=== PATIENT | female | born 1970 | race Caucasian/White ===

== ENCOUNTER → 2019-03-10 | Outpatient (REF) | payer BC ==
[2019-03-10 16:21] LABS: BLOOD UREA NITROGEN 5 MG/DL (7-18); CALCIUM LEVEL 10.7 MG/DL (8.5-10.1); CARBON DIOXIDE LEVEL 29 MEQ/L (21-32); CHLORIDE LEVEL 98 MEQ/L (98-107); CREATININE FOR GFR 0.73 MG/DL (0.55-1.30); GLOMERULAR FILTRATION RATE > 60.0 (>51); GLUCOSE, FASTING 94 MG/DL (70-100); SODIUM LEVEL 134 MEQ/L (136-145)
[2019-03-10 16:29] LABS: OSMOLALITY SERUM 285 MOSM/KG (275-295)
== END ==
LOC: M SFHCPLAZ 15:27
PROVIDERS: ATTEND Nurse Practitioner Family
DX: E87.1 Hypo-osmolality and hyponatremia (principal)

== ENCOUNTER → 2019-03-10 | Outpatient (CLI) | payer BC ==
--- NOTE | 2019-03-19 14:07 | REP ---
BILATERAL SCREENING DIGITAL MAMMOGRAM WITH 3D TOMOSYNTHESIS: There are no palpable abnormalities or other breast complaints. The the patient states she had a clinical breast examination 01/2019. The the patient states she performs self-breast examinations six times per year. The Tyrer-Cuzick Score is: 20.1% . Comparison is of 08/29/2015. The breasts are extremely dense, which lowers the sensitivity of mammography. There is no dominant mass, micro calcific cluster or architectural distortion that would indicate malignancy. There are no additional findings on 3D tomosynthesiss. There is no change from the prior study. Impression: BIRADS/ACR category 1 mammogram. Negative. Recommendation: Routine annual screening mammography. Because of the increased breast density, annual adjunctive breast MRI in addition to screening mammography is recommended. For women with a Tyrer-Cuzick score greater than 20 , adjunctive annual breast MRI in addition to screening mammography is recommended. This mammogram was interpreted with the aid of a FDA approved computer-aided detection system. A. Negative mammogram reports should not delay biopsy if a dominant or clinically suspicious mass is present. B. Not all breast cancers are identified by mammography or tomosynthesis. C. Adenosis and dense breasts may obscure an underlying neoplasm. Patient letter M1 dense breasts. Electronically Signed by Michael Gilmore MD 03/19/2019 01:59 P
== END ==
LOC: M WHC 12:39
PROVIDERS: ATTEND Nurse Practitioner Family
DX: Z12.31 Encounter for screening mammogram for malignant neoplasm of breast (principal)

== ENCOUNTER → 2019-06-02 | Outpatient (CLI) | payer BC ==
--- NOTE | 2019-06-02 18:49 | REP ---
PET/CT: History: Right lower lobe solitary pulmonary nodule, right lower lobe . Comparisons: Comparison chest CT exam is from [facility] dated April 28, 2019. The somewhat spiculated nodule previously identified in the superior segment of the right lower lobe is again seen on today's chest CT. It appears slightly larger on today's study. TECHNIQUE: 46 minutes following the intravenous injection of a 8.60 mCi dose of F-18 FDG, three-dimensional PET scintigraphy is acquired from the skull base to the proximal thighs. Triplanar noncontrast CT scanning is acquired through the same anatomic range for attenuation correction, and image registration with scan parameters optimized to minimize radiation exposure to the patient. PET scintigraphy and CT datasets were fused and displayed on a workstation with multiplanar and projection display capability. PET/CT Findings: The somewhat spiculated nodule recently identified in the superior segment right lower lobe on the prior chest CT is again noted. It appears somewhat larger measuring 12 mm in greatest diameter on today's CT images. It is mildly hypermetabolic with maximum standard uptake value 4.39. No other abnormal hypermetabolic pulmonary parenchymal uptake is seen. There is visible precarinal lymph node but this is not hypermetabolic, SUV 1.9. No hypermetabolic cale uptake is seen in the mediastinum or in either hilus. In the abdomen and pelvis, there is normal FDG distribution to the liver spleen, urinary tract and gastrointestinal tract. No abnormal hypermetabolic uptake is seen in the abdomen or pelvis. There is a linear pattern of mildly hypermetabolic uptake in the left side of the upper two sacral segments parallel to the SI joint. There is faint sclerosis along this region and the findings are felt to be most compatible with developing sacral insufficiency fracture. Maximum standard uptake value is minimally increased at 3.0. No other focally abnormal skeletal hypermetabolic focus is seen. Scan is otherwise unremarkable. Impression: Hypermetabolic uptake is seen in the superior segment right lower lobe pulmonary nodule. Malignancy cannot be excluded. The lesion appears slightly larger on today's CT images. There is mildly hypermetabolic uptake in a somewhat linear vertically oriented pattern in the left upper lateral sacrum suggestive of sacral insufficiency fracture. MRI study of the sacrum may provide additional information. No other abnormal hypermetabolic uptake. Electronically Signed by Pineda Castillo MD 06/03/2019 09:09 A
== END ==
LOC: M PLARAD 11:24
PROVIDERS: ATTEND Nurse Practitioner Family
DX: R91.1 Solitary pulmonary nodule (principal)
CPT/HCPCS: 78815; A9552

== ENCOUNTER → 2019-06-11 | Outpatient (CLI) | payer BC ==
--- NOTE | 2019-06-12 06:08 | REP ---
Clinical: Follow-up pulmonary nodule. Technique: Axial noncontrast images from the thoracic inlet to the upper abdomen with coronal and sagittal re-formations. Comparison: Findings: Solitary spiculated nodule in the superior segment right lower lobe currently measures approximately 11.5 mm maximal diameter. Mediastinal lymph node in the precarinal space measures 12 mm. No further lesions or adenopathy appreciated. Chronic COPD/emphysematous disease noted. Tracheobronchial tree is patent. No effusion. No pneumothorax. Ascending thoracic aorta measures 3.9 cm diameter. No cardiomegaly or pericardial effusion. Impression: 1. Spiculated lesion in the superior segment right lower lobe measuring 11.5 mm maximal diameter with 12 mm precarinal lymph node. 2. Ascending thoracic aortic aneurysm 3.9 cm maximal diameter. 3. COPD/emphysematous disease. Electronically Signed by Yuri Jones MD 06/12/2019 05:58 A
== END ==
LOC: M RAD 12:22
PROVIDERS: ATTEND Nurse Practitioner Family
DX: R91.1 Solitary pulmonary nodule (principal)

== ENCOUNTER → 2019-08-10 | Outpatient (CLI) | payer BC, MEDICARE ==
--- NOTE | 2019-08-10 14:23 | REP ---
CT CHEST WITHOUT CONTRAST: HISTORY: Solitary pulmonary nodule. Comparison chest CT June 11, 2019. PET CT June 02, 2019. FINDINGS: A spiculated nodule is again noted in the superior segment right lower lobe. This measures 9.5 mm in greatest transverse dimension today, previously 11.5 mm. Its vertical span on sagittal multiplanar re-formation image is 6.0 mm today, previously 8.8 mm. There are emphysematous changes in the upper lobes bilaterally. No other significant pulmonary nodule is appreciated. There is a small pleural plaque in the right lower lobe more inferiorly. No infiltrate is seen. No pleural or pericardial effusion is seen. Normal adrenal glands are observed. There is an accessory splenule in the left upper quadrant. No adenopathy. IMPRESSION: There is a spiculated nodule in the superior segment right lower lobe which appears slightly smaller than on the prior study. Continued followup is advised. Electronically Signed by Pineda Castillo MD 08/10/2019 05:02 P
== END ==
LOC: M RAD 12:54
PROVIDERS: ATTEND Internal Medicine Pulmonary Disease
DX: R91.1 Solitary pulmonary nodule (principal)

== ENCOUNTER → 2019-11-16 | Outpatient (CLI) | payer MEDICARE ==
--- NOTE | 2019-11-16 12:30 | REP ---
CT of the chest without IV contrast for right lower lobe lung nodule: Comparisons are 08/10/2019 and 06/11/2019. The patient's known nodule in the superior segment of the right upper lobe with poorly defined margins today measures 10 mm transversely. This measured at 10 mm on 08/10/2019 measured 11 mm 06/11/2019. There are no other lung nodules or masses. There are no infiltrates or pleural effusions. There is extensive replacement of the lung parenchyma with bulla bilaterally in all lobes. This is unchanged. There is no mediastinal or axillary lymph node enlargement. In the absence of IV contrast the study is insensitive for hilar lymph node enlargement. The visualized upper abdominal contents are unremarkable. There is no adrenal mass. Impression: Right lower lobe lung nodule as described. Electronically Signed by Michael Gilmore MD 11/16/2019 12:23 P
== END ==
LOC: M RAD 10:29
PROVIDERS: ATTEND Internal Medicine Pulmonary Disease
DX: R91.1 Solitary pulmonary nodule (principal); J43.9 Emphysema, unspecified

== ENCOUNTER → 2020-07-01 | Outpatient (CLI) | payer MEDICARE ==
--- NOTE | 2020-07-06 07:56 | REP ---
CT CHEST WITHOUT CONTRAST HISTORY: Solitary pulmonary nodule. COMPARISON: Made with prior chest CTs, the most recent of which is from 11/16/2019 and the most remote of which is dated 11/04/2015. CT FINDINGS: Hyperinflation is apparent on the digital director of agronomy radiograph as before. There are moderate emphysematous changes in the upper lobes. The previously identified spiculated nodule in the superior segment of the right lower lobe is again seen. This measures 7 mm anterior to posterior by 8 mm right to left x 6 mm cranial to caudal. It retains its rather spiculated morphologic appearance, but does not appear to have increased in size since the 11/16/2019 or the 06/11/2019 study. In deed, it measured 11.5 mm in right to left dimension on 06/11/2019. Remote prior study showed waxing and waning nodular opacities elsewhere in the lungs. There is a tiny stable 3-mm nodule in the superior segment of the left lower lobe on todays study Page 29 of 113 in Series 201. This is unchanged from 11/16/2019 and 06/11/2019. No new pulmonary nodule is appreciated on todays CT images. No mass or infiltrate is appreciated. No pleural or pericardial effusion is seen. No hilar or mediastinal mass or adenopathy is seen. The ascending aorta is mildly dilated measuring 4.0 cm in AP dimension at the right main pulmonary artery also unchanged. Normal adrenal glands are seen. The visualized upper abdominal structures are unremarkable. There is an accessory splenule. No bony destructive lesion is seen. IMPRESSION: Stable spiculated nodule superior segment right lower lobe, 8.4 mm in greatest dimension today. MTDD
== END ==
LOC: M RAD 08:10
PROVIDERS: ATTEND Internal Medicine Pulmonary Disease
DX: R91.1 Solitary pulmonary nodule (principal)

== ENCOUNTER → 2021-01-13 | Outpatient (REF) | payer MEDICARE ==
[2021-01-13 16:12] LABS: ALBUMIN 4.6 GM/DL (3.2-5.2); ALT/SGPT 24 U/L (12-78); BILIRUBIN,TOTAL 0.5 MG/DL (0.2-1.0); BLOOD UREA NITROGEN 7 MG/DL (7-18); CALCIUM LEVEL 10.7 MG/DL (8.5-10.1); CARBON DIOXIDE LEVEL 30 MEQ/L (21-32); CHLORIDE LEVEL 99 MEQ/L (98-107); CHOLESTEROL LEVEL 233 MG/DL (<200); CHOLESTEROL RISK RATIO 1.849 (<5); CREATININE FOR GFR 0.51 MG/DL (0.55-1.30); FREE T4 1.08 NG/DL (0.76-1.46); GLOMERULAR FILTRATION RATE > 60.0 (>51); GLUCOSE, FASTING 91 MG/DL (70-100); HDL CHOLESTEROL 126 MG/DL (>40); LDL CHOLESTEROL 88 MG/DL (<100); MAGNESIUM LEVEL 2.1 MG/DL (1.8-2.4); NON-HDL-C 107 MG/DL; POTASSIUM SERUM 4.3 MEQ/L (3.5-5.1); SODIUM LEVEL 134 MEQ/L (136-145); TOTAL PROTEIN 8.3 GM/DL (6.4-8.2); TRIGLYCERIDES LEVEL 95 MG/DL (<150)
[2021-01-13 16:15] LABS: TOTAL 25(OH) VITAMIN D 31.8 NG/ML (30.0-100.0)
== END ==
LOC: M SFHCPLAZ 13:56
PROVIDERS: ATTEND Nurse Practitioner Family
DX: E78.5 Hyperlipidemia, unspecified (principal); I10 Essential (primary) hypertension; E55.9 Vitamin D deficiency, unspecified

== ENCOUNTER → 2021-02-13 | Outpatient (CLI) | payer MEDICARE ==
--- NOTE | 2021-02-13 09:02 | REPVR ---
PROCEDURE INFORMATION: Exam: CT Chest Without Contrast; Diagnostic Exam date and time: 02/13/2021 8:30 AM Age: 50 years old Clinical indication: Condition or disease; Other: Solitary pulmonary nodule TECHNIQUE: Imaging protocol: Diagnostic computed tomography of the chest without contrast. 3D rendering (Not supervised by radiologist): MIP and/or 3D reconstructed images were created by the technologist. Radiation optimization: All CT scans at this facility use at least one of these dose optimization techniques: automated exposure control; mA and/or kV adjustment per patient size (includes targeted exams where dose is matched to clinical indication); or iterative reconstruction. COMPARISON: CT Chest without contrast 07/01/2020 8:25 AM FINDINGS: Lungs: Stable 10 mm nodule in the superior segment of the right upper lobe with poorly defined margins . There are no other lung nodules or masses. Hyperinflated lungs with emphysematous changes. Pleural spaces: Unremarkable. No pneumothorax. No pleural effusion. Heart: Unremarkable. No cardiomegaly. No pericardial effusion. Aorta: Ascending thoracic aorta is borderline enlarged measuring 37 x 14 mm. Lymph nodes: Unremarkable. No enlarged lymph nodes. Bones/joints: Old left lateral 7, 8, and 9th rib fractures with callus formation. No acute fracture. Soft tissues: Unremarkable. IMPRESSION: Stable 10 mm nodule in the superior segment of the right upper lobe with poorly defined margins . There are no other lung nodules or masses. Hyperinflated lungs with emphysematous changes. Follow-up as clinically indicated. Electronically signed by: Yeni Markham On 02/13/2021 09:02:03 AM
== END ==
LOC: M RAD 08:17
PROVIDERS: ATTEND Internal Medicine Pulmonary Disease
DX: R91.1 Solitary pulmonary nodule (principal); J43.9 Emphysema, unspecified

== ENCOUNTER → 2022-06-15 | Outpatient (CLI) | payer MEDICARE ==
[2022-06-15 15:44] LABS: BASO % 0.3 % (0.0-1.0); EOS # 0.1 10^3/uL (0.0-0.5); HEMATOCRIT 44.1 % (36.0-47.0); HEMOGLOBIN 15.2 g/dl (12.0-15.5); LYMPH # 1.3 10^3/uL (1.5-5.0); LYMPH % 18.3 % (24.0-44.0); MEAN CORPUSCULAR HEMOGLOBIN 32.8 pg (27.0-33.0); MEAN CORPUSCULAR HGB CONC 34.5 g/dl (32.0-36.5); MEAN CORPUSCULAR VOLUME 95.2 fl (80.0-96.0); MONO # 0.6 10^3/uL (0.0-0.8); MONO % 7.9 % (2.0-8.0); NEUTROPHILS # 5.1 10^3/uL (1.5-8.5); NEUTROPHILS % 72.2 % (36.0-66.0); PLATELET COUNT, AUTOMATED 237 10^3/uL (150-450); RED BLOOD COUNT 4.63 10^6/uL (4.00-5.40); WHITE BLOOD COUNT 7.1 10^3/uL (4.0-10.0)
[2022-06-15 16:31] LABS: ALBUMIN 4.6 GM/DL (3.2-5.2); ALT/SGPT 30 U/L (12-78); BILIRUBIN,TOTAL 0.4 MG/DL (0.2-1.0); BLOOD UREA NITROGEN 4 MG/DL (7-18); CALCIUM LEVEL 10.4 MG/DL (8.5-10.1); CARBON DIOXIDE LEVEL 29 MEQ/L (21-32); CHLORIDE LEVEL 102 MEQ/L (98-107); CHOLESTEROL LEVEL 256 MG/DL (<200); CHOLESTEROL RISK RATIO 1.954 (<5); CREATININE FOR GFR 0.58 MG/DL (0.55-1.30); GLOMERULAR FILTRATION RATE > 60.0 (>51); GLUCOSE, FASTING 112 MG/DL (70-100); HDL CHOLESTEROL 131 MG/DL (>40); LDL CHOLESTEROL 105 MG/DL (<100); MAGNESIUM LEVEL 2.3 MG/DL (1.8-2.4); NON-HDL-C 125 MG/DL; POTASSIUM SERUM 3.9 MEQ/L (3.5-5.1); SODIUM LEVEL 134 MEQ/L (136-145); TOTAL PROTEIN 8.2 GM/DL (6.4-8.2); TRIGLYCERIDES LEVEL 101 MG/DL (<150)
== END ==
LOC: M PLALAB 13:18
PROVIDERS: ATTEND Nurse Practitioner Family
DX: I10 Essential (primary) hypertension (principal); E78.5 Hyperlipidemia, unspecified; E55.9 Vitamin D deficiency, unspecified

== ENCOUNTER → 2023-12-05 | Outpatient (REF) | payer MEDICARE ==
[2023-12-05 14:27] LABS: BASO % 0.4 % (0.0-1.0); EOS # 0.1 10^3/uL (0.0-0.5); HEMATOCRIT 43.3 % (36.0-47.0); HEMOGLOBIN 14.7 g/dl (12.0-15.5); LYMPH # 1.4 10^3/uL (1.5-5.0); LYMPH % 27.5 % (24.0-44.0); MEAN CORPUSCULAR HEMOGLOBIN 32.2 pg (27.0-33.0); MEAN CORPUSCULAR HGB CONC 33.9 g/dl (32.0-36.5); MONO # 0.4 10^3/uL (0.0-0.8); MONO % 7.7 % (2.0-8.0); NEUTROPHILS # 3.2 10^3/uL (1.5-8.5); NEUTROPHILS % 63.2 % (36.0-66.0); PLATELET COUNT, AUTOMATED 184 10^3/uL (150-450); RED BLOOD COUNT 4.56 10^6/uL (4.00-5.40); WHITE BLOOD COUNT 5.1 10^3/uL (4.0-10.0)
[2023-12-05 14:56] LABS: TOTAL 25(OH) VITAMIN D 25.9 NG/ML (20.0-100.0)
[2023-12-05 14:58] LABS: FREE T4 1.08 NG/DL (0.89-1.76)
[2023-12-05 14:59] LABS: THYROID STIMULATING HORMONE 1.866 uIU/ML (0.55-4.78)
[2023-12-05 15:00] LABS: ALBUMIN 4.6 G/DL (3.2-5.2); ALKALINE PHOSPHATASE 97 U/L (46-116); ALT/SGPT 20 U/L (7.0-40); AST/SGOT 15 U/L (<34); BILIRUBIN,TOTAL 0.6 MG/DL (0.3-1.2); BLOOD UREA NITROGEN 9 MG/DL (9-23); CALCIUM LEVEL 10.3 MG/DL (8.5-10.1); CARBON DIOXIDE LEVEL 31 MMOL/L (20-31); CHLORIDE LEVEL 103 MMOL/L (98-107); CHOLESTEROL LEVEL 264 MG/DL (<200); CHOLESTEROL RISK RATIO 2.36 (<5); CREATININE FOR GFR 0.55 MG/DL (0.55-1.30); GLOMERULAR FILTRATION RATE > 60.0 (>51); GLUCOSE, FASTING 103 MG/DL (60-100); HDL CHOLESTEROL 111.8 MG/DL (>40); LDL CHOLESTEROL 134.6 MG/DL (<100); NON-HDL-C 152.2 MG/DL; POTASSIUM SERUM 3.8 MMOL/L (3.5-5.1); SODIUM LEVEL 139 MMOL/L (136-145); TOTAL PROTEIN 7.6 G/DL (5.7-8.2); TRIGLYCERIDES LEVEL 88 MG/DL (<150)
== END ==
LOC: M SFHCADAM 10:13
PROVIDERS: ATTEND Nurse Practitioner Family
DX: I10 Essential (primary) hypertension (principal); E78.5 Hyperlipidemia, unspecified; E55.9 Vitamin D deficiency, unspecified

== ENCOUNTER → 2023-12-05 | Outpatient (CLI) | payer MEDICARE ==
[2023-12-05 14:26] LABS: BASO % 0.2 % (0.0-1.0); EOS % 0.8 % (0.0-3.0); HEMATOCRIT 43.4 % (36.0-47.0); HEMOGLOBIN 14.9 g/dl (12.0-15.5); LYMPH # 1.3 10^3/uL (1.5-5.0); LYMPH % 26.5 % (24.0-44.0); MEAN CORPUSCULAR HEMOGLOBIN 32.7 pg (27.0-33.0); MEAN CORPUSCULAR HGB CONC 34.3 g/dl (32.0-36.5); MEAN CORPUSCULAR VOLUME 95.2 fl (80.0-96.0); MONO # 0.4 10^3/uL (0.0-0.8); MONO % 7.9 % (2.0-8.0); NEUTROPHILS # 3.3 10^3/uL (1.5-8.5); NEUTROPHILS % 64.2 % (36.0-66.0); PLATELET COUNT, AUTOMATED 183 10^3/uL (150-450); RED BLOOD COUNT 4.56 10^6/uL (4.00-5.40); WHITE BLOOD COUNT 5.1 10^3/uL (4.0-10.0)
[2023-12-05 14:54] LABS: ALBUMIN 4.3 G/DL (3.2-5.2); BILIRUBIN,DIRECT 0.2 MG/DL (<0.4); BILIRUBIN,TOTAL 0.5 MG/DL (0.3-1.2); TOTAL PROTEIN 7.3 G/DL (5.7-8.2)
[2023-12-05 14:58] LABS: IMMUNOGLOBULIN E 38.1 IU/ML (0-378)
== END ==
LOC: M LABDRWAD 10:54
PROVIDERS: ATTEND Internal Medicine Pulmonary Disease
DX: E88.01 Alpha-1-antitrypsin deficiency (principal); Z14.8 Genetic carrier of other disease

== ENCOUNTER → 2023-12-17 | Outpatient (CLI) | payer MEDICARE | LOC: M WHC 12:28 | PROVIDERS: ATTEND Nurse Practitioner Family | DX: Z13.820 Encounter for screening for osteoporosis (principal); M81.0 Age-related osteoporosis without current pathological fracture; Z12.31 Encounter for screening mammogram for malignant neoplasm of breast; R92.333 Mammographic heterogeneous density, bilateral breasts; Z80.3 Family history of malignant neoplasm of breast ==

== ENCOUNTER → 2024-01-30 | Outpatient (CLI) | payer MEDICARE | LOC: M PLAIMG 13:00 | PROVIDERS: ATTEND Internal Medicine Pulmonary Disease | DX: R91.8 Other nonspecific abnormal finding of lung field (principal); J47.9 Bronchiectasis, uncomplicated; J84.10 Pulmonary fibrosis, unspecified; I77.810 Thoracic aortic ectasia; J43.9 Emphysema, unspecified ==

== ENCOUNTER → 2024-04-01 | Outpatient (CLI) | payer MEDICARE ==
[~2024-04-01] MED LIST: ALLE180T33 PO; ATOR1TAB21 PO; FLUT1BLS8; MULT-90 PO; VENTAER; ZOLO100T PO
== END ==
LOC: M SOG 11:06
PROVIDERS: ATTEND Orthopaedic Surgery
DX: S52.021A Displaced fracture of olecranon process without intraarticular extension of right ulna, initial encounter for closed fracture (principal); Y93.9 Activity, unspecified; Y92.9 Unspecified place or not applicable

== ENCOUNTER → 2024-04-02 | Outpatient (REF) | payer MEDICARE ==
[2024-04-02 17:27] LABS: BASO % 0.2 % (0.0-1.0); EOS # 0.1 10^3/uL (0.0-0.5); EOS % 0.9 % (0.0-3.0); HEMATOCRIT 40.3 % (36.0-47.0); HEMOGLOBIN 13.6 g/dl (12.0-15.5); LYMPH # 1.3 10^3/uL (1.5-5.0); LYMPH % 19.4 % (24.0-44.0); MEAN CORPUSCULAR HEMOGLOBIN 33.7 pg (27.0-33.0); MEAN CORPUSCULAR HGB CONC 33.7 g/dl (32.0-36.5); MONO # 0.4 10^3/uL (0.0-0.8); MONO % 6.1 % (2.0-8.0); NEUTROPHILS # 4.8 10^3/uL (1.5-8.5); NEUTROPHILS % 73.2 % (36.0-66.0); PLATELET COUNT, AUTOMATED 232 10^3/uL (150-450); RED BLOOD COUNT 4.03 10^6/uL (4.00-5.40); WHITE BLOOD COUNT 6.6 10^3/uL (4.0-10.0)
[2024-04-02 17:34] LABS: INR 0.96; PROTHROMBIN TIME 12.5 SECONDS (12.5-14.5)
[2024-04-02 17:49] LABS: ALBUMIN 3.9 G/DL (3.2-5.2); ALKALINE PHOSPHATASE 99 U/L (46-116); ALT/SGPT 18 U/L (7.0-40); AST/SGOT 12 U/L (<34); BILIRUBIN,TOTAL 0.6 MG/DL (0.3-1.2); BLOOD UREA NITROGEN 9 MG/DL (9-23); CALCIUM LEVEL 10.1 MG/DL (8.5-10.1); CARBON DIOXIDE LEVEL 30 MMOL/L (20-31); CHLORIDE LEVEL 104 MMOL/L (98-107); CREATININE FOR GFR 0.56 MG/DL (0.55-1.30); GLOMERULAR FILTRATION RATE > 60.0 (>51); GLUCOSE, FASTING 130 MG/DL (60-100); POTASSIUM SERUM 3.9 MMOL/L (3.5-5.1); SODIUM LEVEL 142 MMOL/L (136-145)
== END ==
LOC: M LABDRWAD 16:50
PROVIDERS: ATTEND Orthopaedic Surgery
DX: S52.021A Displaced fracture of olecranon process without intraarticular extension of right ulna, initial encounter for closed fracture (principal); X58.XXXA Exposure to other specified factors, initial encounter; Y92.9 Unspecified place or not applicable; Y93.9 Activity, unspecified; Y99.8 Other external cause status

== ENCOUNTER 2024-04-03 12:40 | Day surgery (SDC) | payer MEDICARE ==
[~2024-04-03] VITALS: Ht 162.6 cm; Wt 50.1 kg
[2024-04-03] MEDS ORDERED: LR 1,000 ML IV SCH (13:55)
[2024-04-03] MEDS ORDERED: ceFAZolin 2 GM/D5W 50 ML IV BAG As Ordered ONE (16:04)
[2024-04-03] MEDS: ceFAZolin SOD 2 GM in IV 1 EA IV ONE (16:13)
[2024-04-03] MEDS ORDERED: dexmedeTOMIDine (4MCG/ML)200MCG/50ML BTL (PRECEDEX) As Ordered ONE (16:17)
[2024-04-03] MEDS ORDERED: MIDAZOLAM INJ 2MG/2ML VIAL As Ordered ONE (16:17)
[2024-04-03] MEDS ORDERED: propofoL 200 MG/20 ML VIAL As Ordered ONE (16:17)
[2024-04-03] MEDS ORDERED: ONDANSETRON 4MG 2ML VIAL As Ordered ONE (16:17)
[2024-04-03] MEDS ORDERED: fentaNYL 100 MCG/2 ML INJECTION As Ordered ONE (16:17)
[2024-04-03] MEDS ORDERED: LIDOCAINE 2% 100MG/5ML SDV (FOR ANES.) As Ordered ONE (16:17)
[2024-04-03] MEDS ORDERED: PHENYLephrine 500MCG 5ML (100MCG/ML) SYRINGE As Ordered ONE (16:20)
[2024-04-03] MEDS ORDERED: ACETAMINOPHEN 1000MG 100ML IV BAG As Ordered ONE (16:34)
[2024-04-03] MEDS: VANCOMYCIN 1000MG/20ML VIAL As Ordered ONE (17:08)
[2024-04-03] MEDS ORDERED: HYDROmorphone HCL 2MG/ML 1ML VIAL As Ordered ONE (17:21)
[2024-04-03] MEDS ORDERED: MORPHINE 2 MG/ML 1ML VIAL IV PRN (17:40)
[2024-04-03] MEDS ORDERED: fentaNYL 100 MCG/2 ML INJECTION IV PRN (17:40)
[2024-04-03] MEDS: oxyCODONE 5MG TAB PO PRN (18:13)
[2024-04-03] MEDS: ONDANSETRON 4MG 2ML VIAL IV PRN (18:13)
[2024-04-03 18:43] VITALS: BP 101/66; TEMP 98; O2SAT 94
== END 2024-04-03 19:02 | disposition home or self-care (01) ==
LOC: M SDC 12:40
PROVIDERS: ATTEND Orthopaedic Surgery
DX: S52.031A Displaced fracture of olecranon process with intraarticular extension of right ulna, initial encounter for closed fracture (principal); J44.9 Chronic obstructive pulmonary disease, unspecified; E88.01 Alpha-1-antitrypsin deficiency; V28.39XA Person boarding or alighting other motorcycle injured in noncollision transport accident, initial encounter; Y93.89 Activity, other specified; Y92.9 Unspecified place or not applicable; F17.210 Nicotine dependence, cigarettes, uncomplicated; Z79.899 Other long term (current) drug therapy; Z79.51 Long term (current) use of inhaled steroids; Z88.0 Allergy status to penicillin
CPT/HCPCS: 24685; 76000; J0131; J0665; J0690; J1100; J1170; J2250; J2371; J2405; J3010; J3370

== ENCOUNTER → 2024-04-17 | Outpatient (CLI) | payer MEDICARE | LOC: M SOG 07:52 | PROVIDERS: ATTEND Orthopaedic Surgery | DX: Z47.89 Encounter for other orthopedic aftercare (principal); S52.021D Displaced fracture of olecranon process without intraarticular extension of right ulna, subsequent encounter for closed fracture with routine healing ==

== ENCOUNTER → 2024-05-04 | Outpatient (CLI) | payer MEDICARE | LOC: M PLAIMG 13:11 | PROVIDERS: ATTEND Orthopaedic Surgery | DX: S52.031D Displaced fracture of olecranon process with intraarticular extension of right ulna, subsequent encounter for closed fracture with routine healing (principal) ==

== ENCOUNTER → 2024-06-08 | Outpatient (CLI) | payer MEDICARE | LOC: M SOG 07:25 | PROVIDERS: ATTEND Orthopaedic Surgery | DX: S52.031D Displaced fracture of olecranon process with intraarticular extension of right ulna, subsequent encounter for closed fracture with routine healing (principal) ==

== ENCOUNTER → 2024-08-06 | Outpatient (CLI) | payer MEDICARE | LOC: M RAD 13:09 | PROVIDERS: ATTEND Internal Medicine Pulmonary Disease | DX: J43.1 Panlobular emphysema (principal); R91.1 Solitary pulmonary nodule; R91.8 Other nonspecific abnormal finding of lung field; F17.200 Nicotine dependence, unspecified, uncomplicated ==

== ENCOUNTER → 2024-08-10 | Outpatient (CLI) | payer MEDICARE | LOC: M SOG 07:53 | PROVIDERS: ATTEND Orthopaedic Surgery | DX: S52.031D Displaced fracture of olecranon process with intraarticular extension of right ulna, subsequent encounter for closed fracture with routine healing (principal); Z53.9 Procedure and treatment not carried out, unspecified reason ==

== ENCOUNTER → 2024-09-01 | Outpatient (CLI) | payer MEDICARE | LOC: M PLALAB 12:56 | PROVIDERS: ATTEND Nurse Practitioner Family | DX: I10 Essential (primary) hypertension (principal); E55.9 Vitamin D deficiency, unspecified ==

== ENCOUNTER → 2024-09-25 | Outpatient (CLI) | payer MEDICARE | LOC: M SOG 07:51 | PROVIDERS: ATTEND Orthopaedic Surgery | DX: Z53.9 Procedure and treatment not carried out, unspecified reason (principal) ==